=== PATIENT | male | born 1985 | race Hispanic/Latino ===

== ENCOUNTER 2024-12-14 11:09 | Emergency (ER) | payer OTHER ==
[~2024-12-14] VITALS: Ht 175.3 cm; Wt 102.1 kg
[~2024-12-14 11:09] MED LIST: ATOR-2 PO; CYCL7.5T27 PO; FERR324T23 PO; LACT10SO85 PO; METF-446 PO; NAPR-1194 PO; OMEP40CA21 PO
[2024-12-14 11:43] VITALS: BP 160/90; PULSE 82; RESP 16; TEMP 98; O2SAT 98
[2024-12-14 11:44] LABS: BASOPHILS # (AUTO) 0.05 K/uL (0.00-0.20); BASOPHILS % (AUTO) 0.4 % (0.0-5.0); EOSINOPHILS # (AUTO) 0.06 K/uL (0.00-0.70); EOSINOPHILS % (AUTO) 0.5 % (0.0-8.0); HEMATOCRIT 47.6 % (42-54); IMMATURE GRANULOCYTE ABSOLUTE 0.06 K/uL (0-1); LYMPHOCYTES # (AUTO) 1.3 K/uL (1.0-4.8); LYMPHOCYTES % (AUTO) 10.3 % (21.0-51.0); MEAN CORPUSCULAR HEMOGLOBIN 29.9 pg (27.0-33.0); MEAN CORPUSCULAR HGB CONC 34.7 g/dL (32.0-36.0); MEAN CORPUSCULAR VOLUME 86.2 fL (79-99); MONOCYTES % (AUTO) 7.8 % (3.0-13.0); NEUTROPHILS # (AUTO) 10.1 K/uL (1.8-7.7); NEUTROPHILS % (AUTO) 80.5 % (40.0-77.0); PLATELET COUNT (AUTO) 198 K/uL (130-400); RED BLOOD CELL COUNT(AUTO) 5.52 MIL/uL (4.50-6.20); WHITE BLOOD COUNT (AUTO) 12.5 K/uL (4.8-10.8)
[2024-12-14 11:46] LABS: APPEARANCE,URINE CLEAR (CLEAR); BILIRUBIN,URINE NEGATIVE (NEGATIVE); COLOR,URINE YELLOW (YELLOW); GLUCOSE, URINE (UA) TRACE mg/dL (NEGATIVE); KETONES,URINE 5 mg/dL (NEGATIVE); LEUKOCYTE ESTERASE ,URINE NEGATIVE Leu/uL (NEGATIVE); NITRATE,URINE NEGATIVE (NEGATIVE); OCCULT BLOOD,URINE LARGE (NEGATIVE); PH,URINE 5.5 (5.0-8.0); PROTEIN,URINE 20 mg/dL (NEGATIVE); UROBILINOGEN,URINE 0.2 mg/dL (0.2-1.0)
[2024-12-14 11:52] LABS: CREATININE 1.2 mg/dL (0.5-1.3); POTASSIUM 3.6 mmol/L (3.5-5.1)
[2024-12-14 11:52] LABS: MUCUS,URINE RARE LPF (None Seen); RBC,URINE TNTC /HPF (0-1); WBC,URINE 0-1 /HPF (0-1); YEAST,URINE BUDDING RARE /HPF (None Seen)
[2024-12-14] MEDS: 0.9%NACL 1000ML 1,000 ML IV ONE (11:55)
[2024-12-14] MEDS: ondanSETRON 4MG INJ IVP ONE (11:55)
[2024-12-14] MEDS: ketOROlac 30MG VIAL (30MG/ML) IVP ONE (11:56)
[2024-12-14 11:58] LABS: ALBUMIN 4.3 g/dL (3.5-5.0); BILIRUBIN,DIRECT 0.1 mg/dL (0.0-0.3); BILIRUBIN,TOTAL 0.6 mg/dL (0.2-1.0); TOTAL PROTEIN, SERUM 7.8 g/dL (6.0-8.3)
--- NOTE | 2024-12-14 12:04 | HMCIMG ---
CT ABDOMEN/PELVIS W/O CONTRAST HISTORY: Flank pain COMPARISON: 03/22/2024 TECHNIQUE: Multiple sequential axial images of the abdomen and pelvis were obtained from the dome of the diaphragm through symphysis pubis. Patient was not given contrast through intravenous route. Oral contrast was not given. FINDINGS: No pleural effusion is seen bilaterally. There is no evidence of parenchymal disease or pulmonary nodule of the visualized lower lungs. Degenerative changes of the thoracolumbar spine are present. The heart is not enlarged. Liver is enlarged with fatty changes measuring 22 cm. No gallstone is seen. The liver, spleen, adrenal glands and pancreas are unremarkable. No hydronephrosis is seen on the right. There is left hydronephrosis and left hydroureter with 2 mm renal stone in the left UV junction. Minimal left perinephric fat stranding is seen. Fecal material is seen in the colon. There are normal size retroperitoneal and mesenteric lymph nodes. No ascites is seen. Appendix is not completely well seen. Pelvic sidewalls are symmetric bilaterally. Bladder is poorly distended. IMPRESSION: 1. There is left hydronephrosis and left hydroureter with 2 mm renal stone in the left UV junction. Minimal left perinephric fat stranding is seen. CT was performed with one or more following dose reduction techniques: automated exposure control, adjustment of the mA and kv according to patient's size, or use of a iterative reconstruction technique.
[2024-12-14] MEDS ORDERED: KETO10TA2 PO (12:36)
--- NOTE | 2024-12-14 12:36 | ERN ---
General Chief Complaint: Flank Pain Stated Complaint: ABDOMINAL PAIN Time Seen by MD: 11:16 Time Seen by Midlevel: 11:16 Source: patient History of Present Illness Initial Comments 39-year-old male who presents to the emergency department due to left flank pain onset this morning. Patient reports nausea, and he noticed some blood in the urine. Denies any dysuria, fever, diarrhea or further associated symptoms. PMHx hypercholesterolemia Allergies: Coded Allergies: No Known Drug Allergies (Unverified Allergy, Unknown, 06/05/23) Home Meds Active Scripts Ketorolac Tromethamine (Ketorolac Tromethamine) 10 Mg Tablet, 1 TAB PO Q6HPRN PRN for pain for 5 Days, #20 TAB 0 Refills Prov:ERIC WOODS 12/14/24 Lactulose (Lactulose) 10 Gram/15 Ml Solution, 10 GM PO BID PRN for CONSTIPATION for 5 Days, #100 ML Prov:WINNIE PARNELL MD 03/22/24 Cyclobenzaprine HCl (Cyclobenzaprine HCl) 7.5 Mg Tablet, 7.5 MG PO DAILYDINNER for 5 Days, #5 TAB Prov:WINNIE PARNELL MD 03/22/24 Naproxen (Naproxen) 500 Mg Tablet, 500 MG PO BID PRN for PAIN LEVEL 1 TO 5 for 7 Days, #14 TAB Prov:WINNIE PARNELL MD 03/22/24 Reported Medications Atorvastatin Calcium (Atorvastatin Calcium) 80 Mg Tablet, 40 MG PO HS, TAB 06/05/23 Ferrous Gluconate (Ferrous Gluconate) 324 Mg (37.5 Mg Iron) Tablet, 324 MG PO QODAY, TAB 06/05/23 Metformin HCl (Metformin HCl) 1,000 Mg Tablet, 1000 MG PO BID, TAB 06/05/23 Omeprazole (Omeprazole) 40 Mg Capsule.dr, 40 MG PO BID, CAP 06/05/23 Past Medical History Past Medical History: High Cholesterol Past Surgical History: Other Surgical History Other: PARTIAL COLECTOMY ROS Dictation Constitutional: Negative for fever,chills, and weight loss Eyes: Negative for injury, pain,redness, and discharge ENT: Negative for injury,pain or swelling Cardiovascular: Negative for chest pain, palpitations, and edema Respiratory: Negative for shortness of breath, cough, and wheezing, Abdomen/GI: Negative for abdominal pain, nausea, vomiting, diarrhea, and constipation Back: Positive for left flank pain Negative for injury and pain : Positive for hematuria Negative for painful urination or discharge MS/Extremity: Negative for injury and deformity Skin: Negative for rash, and discoloration Neuro: Negative for headache, weakness, numbness, tingling, and seizure Psych: Negative for suicide ideation, homicidal ideation, and hallucinations Physical Exam Physical Exam Dictation General: awake, alert, no acute distress Head/Face: Normocephalic, atraumatic Eyes: PERRL, EOMI, normal conjunctiva ENT: oral cavity clear, oral mucosa moist Neck: Supple, normal range of motion Cardiovascular: RRR, normal S1/S2 Respiratory: CTAB, no respiratory distress, no rales or wheezes Abdomen: Soft, non-tender, non-distended, no guarding or rebound. Back: Mild Left CVA tenderness Skin: Warm, dry, normal turgor, no rash MS/Extremity: Pulses equal, no cyanosis, neurovascular intact, FROM Neuro: COAx4, GCS 15, strength 5/5, CN 2-12 intact, normal cerebellar exam, normal gait Psych: Normal behavior, mood, and affect normal Results Laboratory and Microbiology Lab and Micro Result Laboratory Tests Test 12/14/24 11:20 12/14/24 11:35 Urine Color YELLOW (YELLOW) Urine Appearance CLEAR (CLEAR) Urine pH 5.5 (5.0-8.0) Urine Specific [place] 1.027 (1.001-1.031) Urine Protein 20 mg/dL (NEGATIVE) H Urine Glucose (UA) TRACE mg/dL (NEGATIVE) H Urine Ketones 5 mg/dL (NEGATIVE) H Urine Occult Blood LARGE (NEGATIVE) H Urine Nitrate NEGATIVE (NEGATIVE) Urine Bilirubin NEGATIVE mg/dL (NEGATIVE) Urine Urobilinogen 0.2 mg/dL (0.2-1.0) Urine Leukocyte Esterase NEGATIVE Tyler/uL Urine RBC TNTC /HPF (0-1) H Urine WBC 0-1 /HPF (0-1) Urine Bacteria None /HPF (None Seen) Urine Yeast RARE /HPF (None Seen) White Blood Count 12.5 K/uL (4.8-10.8) H Red Blood Count 5.52 MIL/uL (4.50-6.20) Hemoglobin 16.5 g/dL (14.0-18.0) Hematocrit 47.6 % (42-54) Mean Corpuscular Volume 86.2 fL (79-99) Mean Corpuscular Hemoglobin 29.9 pg (27.0-33.0) Mean Corpuscular Hemoglobin Concent 34.7 g/dL (32.0-36.0) Red Cell Distribution Width 13.0 % (11.0-15.5) Platelet Count 198 K/uL (130-400) Mean Platelet Volume 9.4 fL (7.5-10.5) Immature Granulocyte % (Auto) 0.5 % (0-1) Neutrophils (%) (Auto) 80.5 % (40.0-77.0) H Lymphocytes (%) (Auto) 10.3 % (21.0-51.0) L Monocytes (%) (Auto) 7.8 % (3.0-13.0) Eosinophils (%) (Auto) 0.5 % (0.0-8.0) Basophils (%) (Auto) 0.4 % (0.0-5.0) Neutrophils # (Auto) 10.1 K/uL (1.8-7.7) H Lymphocytes # (Auto) 1.3 K/uL (1.0-4.8) Monocytes # (Auto) 1.0 K/uL (0.1-1.0) Eosinophils # (Auto) 0.06 K/uL (0.00-0.70) Basophils # (Auto) 0.05 K/uL (0.00-0.20) Absolute Immature Granulocyte (auto 0.06 K/uL (0-1) Nucleated Red Blood Cells 0.0 % (0.0-0.19) Sodium Level 137 mmol/L (136-145) Potassium Level 3.6 mmol/L (3.5-5.1) Chloride Level 101 mmol/L (101-111) Carbon Dioxide Level 25 mmol/L (21-32) Blood Urea Nitrogen 8 mg/dL (7-18) Creatinine 1.2 mg/dL (0.5-1.3) Glomerular Filtration Rate Calc 78 mL/min (>90) Random Glucose 192 mg/dL (70-105) H Total Calcium 9.0 mg/dL (8.5-10.1) Total Bilirubin 0.6 mg/dL (0.2-1.0) Direct Bilirubin 0.1 mg/dL (0.0-0.3) Aspartate Amino Transf (AST/SGOT) 28 U/L (10-37) Alanine Aminotransferase (ALT/SGPT) 61 U/L (12-78) Alkaline Phosphatase 111 U/L (50-136) Total Protein 7.8 g/dL (6.0-8.3) Albumin 4.3 g/dL (3.5-5.0) Lipase 39 U/L (16-77) Labs Reviewed?: Yes EKG/XRAY/US/CT/MRI CT Scan Comment REASON: L flank pain ORDERING PHYSICIAN: ERIC WOODS PROCEDURE: ABD PEL WO - CT ABDOMEN/PELVIS W/O CONTRAST CT ABDOMEN/PELVIS W/O CONTRAST HISTORY: Flank pain COMPARISON: 03/22/2024 TECHNIQUE: Multiple sequential axial images of the abdomen and pelvis were obtained from the dome of the diaphragm through symphysis pubis. Patient was not given contrast through intravenous route. Oral contrast was not given. FINDINGS: No pleural effusion is seen bilaterally. There is no evidence of parenchymal disease or pulmonary nodule of the visualized lower lungs. Degenerative changes of the thoracolumbar spine are present. The heart is not enlarged. Liver is enlarged with fatty changes measuring 22 cm. No gallstone is seen. The liver, spleen, adrenal glands and pancreas are unremarkable. No hydronephrosis is seen on the right. There is left hydronephrosis and left hydroureter with 2 mm renal stone in the left UV junction. Minimal left perinephric fat stranding is seen. Fecal material is seen in the colon. There are normal size retroperitoneal and mesenteric lymph nodes. No ascites is seen. Appendix is not completely well seen. Pelvic sidewalls are symmetric bilaterally. Bladder is poorly distended. IMPRESSION: 1. There is left hydronephrosis and left hydroureter with 2 mm renal stone in the left UV junction. Minimal left perinephric fat stranding is seen. CT was performed with one or more following dose reduction techniques: automated exposure control, adjustment of the mA and kv according to patient's size, or use of a iterative reconstruction technique. MDM MDM: Differential diagnosis: Nephrolithiasis, UTI, pyelonephritis Rationale: 39-year-old male who presents to the emergency department due to left flank pain onset this morning. Patient reports nausea, and he noticed some blood in the urine. Denies any dysuria, fever, diarrhea or further associated symptoms. PMHx hypercholesterolemia Per physical examination patient has mild left CVA tenderness. Vitals within normal limits during ED visit. Labs obtained showing mild WBC elevation of 12.5 otherwise nonspecific. UA negative for urinary tract infection, occult blood and RBCs noted. CT abdomen and pelvis obtained shows mild left hydronephrosis and left hydroureter with 2 mm renal stone in the left UV junction. Patient was administered Zofran, ketorolac, IV fluids in the ED on re-examination patient verbalized pain had resolved. Patient was educated on findings and diagnosis. Advised to follow up with PCP. Return to the emergency department if any worsening symptoms. Patient verbalized understanding. Patient stable for discharge. There are no social concerns with this patient. I independently interpreted the test that were performed, results were reviewed by me and considered findings on radiology if ordered. Medical management and examination interpretation discussions were had by me with other qualified healthcare professionals as indicated for the patient's care. ED Course Orders Procedure Category Date Status Time Cbc With Differential LAB 12/14/24 Complete 11:15 Basic Metabolic Panel LAB 12/14/24 Complete 11:15 Urinalysis LAB 12/14/24 Complete W/Microscopic 11:15 0.9%Nacl 1000ml (Ns PHA 12/14/24 Complete 1000ml) 11:30 Ketorolac PHA 12/14/24 Complete Tromethamine 30mg/Ml 11:30 Lipase LAB 12/14/24 Complete 11:16 Hepatic Function Panel LAB 12/14/24 Complete 11:16 Ct Abdomen/Pelvis W/O CT 12/14/24 Resulted Contrast 11:16 Ondansetron 4mg Inj PHA 12/14/24 Complete (Zofran 4mg Inj) 12:00 Neomy PHA 12/14/24 In Process Sulf/Bacitra/Polymyxin 13:00 Current Medications Medications (Trade) Dose Ordered Sig/Norberto Route PRN Reason Start Time Stop Time Status Last Admin Dose Admin Ketorolac Tromethamine (toRADol) 30 mg ONCE ONCE IVP 12/14/24 11:30 12/14/24 11:31 DC 12/14/24 11:56 Neomycin/ Polymyxin/ Bacitracin (Triple Antibiotic Ointment) 1 appl ONCE ONCE TP 12/14/24 13:00 12/14/24 13:01 Ondansetron HCl (zoFRAN 4MG INJ) 4 mg ONCE ONCE IVP 12/14/24 12:00 12/14/24 12:01 DC 12/14/24 11:55 Sodium Chloride 1,000 ml @ 0 mls/hr ONCE ONCE IV 12/14/24 11:30 12/14/24 11:31 DC 12/14/24 11:55 Vital Signs Date Time Temp Pulse Resp B/P (MAP) Pulse Ox O2 Delivery O2 Flow Rate FiO2 12/14/24 11:43 98.1 82 16 160/90 98 Room Air* 0 21 12/14/24 11:10 98.1 85 20 161/91 99 Room Air 0 DX & DISP Disposition: Discharge Departure Impression: Primary Impression: Left nephrolithiasis Condition: Stable Scripts Ketorolac Tromethamine (Ketorolac Tromethamine) 10 Mg Tablet 1 TAB PO Q6HPRN PRN for pain for 5 Days, #20 TAB 0 Refills Prov: ERIC WOODS 12/14/24 Additional Instructions: Discharge home. Rest. Follow up with primary care in 24 hours. Return to the ER for any acute changes or worsening symptoms. If any medications were prescribed take as directed. Okay to continue home medications unless otherwise discussed during your visit in the emergency room today. Patient was also advised to follow-up with primary care physician in 1 to 2 days for continued monitoring. Referrals: SELF,REFERRAL (PCP) I performed the substantive portion of the visit. I have reviewed and personally made and approve the management plan that is documented in the notes by myself or the CHELSEA. I acknowledge full responsibility for the patient's management plan. ERIC WOODS Dec 14, 2024 12:36
[2024-12-14] MEDS ORDERED: NEOMY SULF/BACITRA/POLYMYXIN B 1 EACH PACKET TP ONE (13:00)
== END 2024-12-14 12:50 | disposition home or self-care (01) ==
LOC: EDH 11:09
DX: N13.2 Hydronephrosis with renal and ureteral calculous obstruction (principal); E78.00 Pure hypercholesterolemia, unspecified; Z79.84 Long term (current) use of oral hypoglycemic drugs; Z79.899 Other long term (current) drug therapy
CPT/HCPCS: 99285; 74176; 96374; 96375; 80076; 80048; 83690; 85025; 81001; 36415; J1885; J7030; J2405

== ENCOUNTER 2025-08-16 17:44 | Emergency (ER) | payer OTHER ==
[~2025-08-16] VITALS: Ht 175.3 cm; Wt 102.1 kg
[~2025-08-16 17:44] MED LIST changes: +KETO10TA2 PO
--- NOTE | 2025-08-16 18:10 | ERN ---
ED Note History of Present Illness Stated Complaint: UPPER BACK ABSCESS Chief Complaint: Abscess Time Seen by MD: 17:54 Time Seen by Midlevel: 17:54 Dictation: The patient is a 39-year-old male with history of prediabetes who presents to the emergency department with a abscess to back that he noticed two weeks ago. Patient denies any fevers but reports some chills. Was sent over from the urgent care for further evaluation. Allergies: Coded Allergies: No Known Drug Allergies (Unverified Allergy, Unknown, 06/05/23) Home Meds Active Scripts Clindamycin HCl (Clindamycin HCl) 300 Mg Capsule, 1 CAP PO QID for 10 Days, #40 CAP 0 Refills Prov:BRIDGER STOUT MEMORANDUM STATEMENT CLERK 08/16/25 Ketorolac Tromethamine (Ketorolac Tromethamine) 10 Mg Tablet, 1 TAB PO Q6HPRN PRN for pain for 5 Days, #20 TAB 0 Refills Prov:ERIC WOODS PAC 12/14/24 Lactulose (Lactulose) 10 Gram/15 Ml Solution, 10 GM PO BID PRN for CONSTIPATION for 5 Days, #100 ML Prov:WINNIE PARNELL MD 03/22/24 Cyclobenzaprine HCl (Cyclobenzaprine HCl) 7.5 Mg Tablet, 7.5 MG PO DAILYDINNER for 5 Days, #5 TAB Prov:WINNIE PARNELL MD 03/22/24 Naproxen (Naproxen) 500 Mg Tablet, 500 MG PO BID PRN for PAIN LEVEL 1 TO 5 for 7 Days, #14 TAB Prov:WINNIE PARNELL MD 03/22/24 Reported Medications Atorvastatin Calcium (Atorvastatin Calcium) 80 Mg Tablet, 40 MG PO HS, TAB 06/05/23 Ferrous Gluconate (Ferrous Gluconate) 324 Mg (37.5 Mg Iron) Tablet, 324 MG PO QODAY, TAB 06/05/23 Metformin HCl (Metformin HCl) 1,000 Mg Tablet, 1000 MG PO BID, TAB 06/05/23 Omeprazole (Omeprazole) 40 Mg Capsule.dr, 40 MG PO BID, CAP 06/05/23 Past Medical History Past Medical History: Diabetes-Type II, High Cholesterol Surgical History: Other Surgical History Other: PARTIAL COLECTOMY RN Note Reviewed/Agreed w/PFSH: Yes Review of System Dictation Constitutional: Negative for fever,chills, and weight loss Eyes: Negative for injury, pain,redness, and discharge ENT: Negative for injury,pain or swelling Cardiovascular: Negative for chest pain, palpitations, and edema Respiratory: Negative for shortness of breath, cough, and wheezing, Abdomen/GI: Negative for abdominal pain, nausea, vomiting, diarrhea, and constipation Back: Negative for injury and pain, positive for abscess to back : Negative for injury, bleeding and discharge MS/Extremity: Negative for injury and deformity Skin: Negative for rash, and discoloration Neuro: Negative for headache, weakness, numbness, tingling, and seizure Psych: Negative for suicide ideation, homicidal ideation, and hallucinations Initial Vital Sign VS Vital Signs Date Time Temp Pulse Resp B/P (MAP) Pulse Ox O2 Delivery O2 Flow Rate FiO2 08/16/25 17:46 98.4 95 20 135/78 99 Room Air 08/16/25 20:25 0 21 Physical Exam Dictation Vital Signs reviewed General Appearance: Alert, oriented x 3, no acute distress, well developed, nourished. Head and Face: non-traumatic. Eyes: PERRL, pink conjunctivas, eyelid no trauma, anterior chamber with arcus senilis. Ears: Pinnas intact and no signs of trauma or erythema ear canals clear and no discharge TM no erythema Nose: No discharge, no bleeding. Oropharynx: Mouth normal, tongue pink. pharynx clear,no erythema, tonsils no exudates, no abscesses noted, mucous membrane moist Neck: Supple, non-tender, no thyromegaly, no masses, no JVD, no bruits Breast:Deferred Chest:No tenderness, no crepitus, no paradoxical movement, no retractions Lungs:Clear, well-ventilated, symmetric, no rales, no wheezing, no rhonchi, no stridor, good breath sounds bilaterally Heart: Regular rate, regular rhythm, no murmur, no gallops Vascular: no peripheral edema, Abdomen: Soft, positive bowel sounds, nondistended, no guarding, nontender, no rebound, no masses no hepatomegaly, no splenomegaly, no Lopez's sign, no hernias. Rectal: Deferred Genital: Deferred Neurological: Normal speech, motor function intact, sensory function intact Musculoskeletal: Neck nontender, full range of motion, back nontender, full range of motion, Extremities: nontender, full range of motion Skin: Color pink, dry, no turgor, no rash, no lacerations, no abrasions, no contusions., large abscess noted to mid upper back, no drainage, slight erythema Lymphatic: Deferred Results (Laboratory/Radiology) Laboratory/Radiology Laboratory Tests Test 08/16/25 18:31 White Blood Count 11.0 K/uL (4.8-10.8) H Red Blood Count 5.53 MIL/uL (4.50-6.20) Hemoglobin 16.5 g/dL (14.0-18.0) Hematocrit 49.0 % (42-54) Mean Corpuscular Volume 88.6 fL (79-99) Mean Corpuscular Hemoglobin 29.8 pg (27.0-33.0) Mean Corpuscular Hemoglobin Concent 33.7 g/dL (32.0-36.0) Red Cell Distribution Width 12.4 % (11.0-15.5) Platelet Count 284 K/uL (130-400) Mean Platelet Volume 9.2 fL (7.5-10.5) Immature Granulocyte % (Auto) 0.5 % (0-1) Neutrophils (%) (Auto) 72.9 % (40.0-77.0) Lymphocytes (%) (Auto) 14.2 % (21.0-51.0) L Monocytes (%) (Auto) 9.4 % (3.0-13.0) Eosinophils (%) (Auto) 2.4 % (0.0-8.0) Basophils (%) (Auto) 0.6 % (0.0-5.0) Neutrophils # (Auto) 8.0 K/uL (1.8-7.7) H Lymphocytes # (Auto) 1.6 K/uL (1.0-4.8) Monocytes # (Auto) 1.0 K/uL (0.1-1.0) Eosinophils # (Auto) 0.26 K/uL (0.00-0.70) Basophils # (Auto) 0.07 K/uL (0.00-0.20) Absolute Immature Granulocyte (auto 0.06 K/uL (0-1) Nucleated Red Blood Cells 0.0 % (0.0-0.19) Sodium Level 140 mmol/L (136-145) Potassium Level 3.8 mmol/L (3.5-5.1) Chloride Level 106 mmol/L (101-111) Carbon Dioxide Level 27 mmol/L (21-32) Blood Urea Nitrogen 7 mg/dL (7-18) Creatinine 0.8 mg/dL (0.5-1.3) Glomerular Filtration Rate Calc 115 mL/min (>90) Random Glucose 127 mg/dL (70-105) H Total Calcium 8.9 mg/dL (8.5-10.1) Labs Reviewed?: Yes ED Course ED Course Orders Procedure Category Date Status Time Cbc With Differential LAB 08/16/25 Complete 18:04 Basic Metabolic Panel LAB 08/16/25 Complete 18:04 Lidocaine Hcl 1% 20ml PHA 08/16/25 Complete Vial (Lidocaine Hc 19:00 Clindamycin 150mg Cap PHA 08/16/25 Complete (Cleocin 150mg Cap 19:00 I&D Set Up Bedside CPOE 08/16/25 Transmitted (Er) 18:54 Current Medications Medications (Trade) Dose Ordered Sig/Norberto Route PRN Reason Start Time Stop Time Status Last Admin Dose Admin Clindamycin HCl (Cleocin 150mg Cap) 300 mg ONCE ONCE PO 08/16/25 19:00 08/16/25 19:01 DC 08/16/25 19:30 Lidocaine HCl (Lidocaine HCl 1% 20ml Vial) 10 ml ONCE ONCE INJ 08/16/25 19:00 08/16/25 19:01 DC 08/16/25 20:13 Vital Signs Date Time Temp Pulse Resp B/P (MAP) Pulse Ox O2 Delivery O2 Flow Rate FiO2 08/16/25 20:25 99.3 100 18 137/84 95 Room Air* 0 21 08/16/25 17:46 98.4 95 20 135/78 99 Room Air Medical Decision Making MDM The patient is a 39-year-old male with history of prediabetes who presents to the emergency department with a abscess to back that he noticed two weeks ago. Patient denies any fevers but reports some chills. Was sent over from the urgent care for further evaluation. CBC showed mild leukocytosis, no anemia, chemistry showed no electrolyte imbalance,. Patient is abscess was drained. Patient tolerated procedure well. Patient will be started on antibiotics and [facility] Patient otherwise in no acute distress, nontoxic appearance, stable vital signs. We will also referral to surgery for further management. Differential diagnosis: Sepsis, abscess, cellulitis Need for hospitalization: Patient does not meet criteria for hospitalization. There are no social concerns with this patient. Procedure Procedure Dictation: Verbal consent for the procedure was obtained. A timeout protocol was performed prior to initiating the procedure. The area was prepared and draped in the usual, sterile manner. The site was anesthetized with 1% lidocaine without epinephrine. A 1.5 cm linear incision along the local skin lines was made and the purulent material expressed. The abscess was explored thoroughly and sequestered pockets were opened. Bleeding was minimal. Packing: idoform 08/21 in The patient tolerated the procedure well without complications. Standard post- procedure care is explained and return precautions are given. Site: Upper back Blade Size: 11 I & D Procedure: no betadine prep DX & DISP Disposition: Discharge Departure Impression: Primary Impression: Abscess of back Condition: Stable Scripts Clindamycin HCl (Clindamycin HCl) 300 Mg Capsule 1 CAP PO QID for 10 Days, #40 CAP 0 Refills Prov: BRIDGER STOUT [facility] 08/16/25 Additional Instructions: [facility] Take your antibiotics as prescribed. You will need your dressing change daily or more often if it becomes soiled. Develop fevers or symptoms are not improving with the antibiotics please follow up with your doctor return to ER if symptoms worsen. FOLLOW-UP WITH PRIMARY CARE PROVIDER IN 1 TO 2 DAYS. TAKE MEDICATIONS DIRECTED HERE IN THE EMERGENCY ROOM. OKAY TO CONTINUE HOME MEDICATIONS UNLESS OTHERWISE DISCUSSED DURING YOUR VISIT IN THE EMERGENCY ROOM TODAY. RETURN TO YOUR NEAREST EMERGENCY ROOM IF SYMPTOMS WORSEN OR IF THERE IS NO IMPROVEMENT. CALL 911 IF YOU NEED IMMEDIATE ASSISTANCE. TAKE TYLENOL [id number] NEEDED AND IF NO CONTRAINDICATIONS ARE PRESENT. INCREASE ORAL HYDRATION. A WOUND CULTURE OR URINE CULTURE WAS ORDERED HERE IN THE EMERGENCY ROOM DEPARTMENT PLEASE FOLLOW-UP WITH PRIMARY CARE PROVIDER AND ADVISE THEM TO GET REPEAT PORTS FROM OUR FACILITY. IF YOU HAD ANY VERA WRAP/SPLINTS THAT WERE APPLIED HERE, PLEASE DO NOT REMOVE THEM UNTIL YOU SEE YOUR PRIMARY CARE OR SPECIALTY. Referrals: SELF,REFERRAL (PCP) YOLANDE DOS SANTOS MD Time of Disposition: 20:00 I have reviewed the case, and I agree with, Diagnosis and Plan I performed a substantive portion of the visit. I have reviewed and personally made and approve the management plan that is documented in the notes by myself with CHELSEA/resident. I acknowledged full responsibility for the patient's management plan. BRIDGER STOUT Aug 16, 2025 18:10 HEDY PENA DO Aug 17, 2025 03:14
[2025-08-16 18:51] LABS: IMMATURE GRANULOCYTE ABSOLUTE 0.06 K/uL (0-1); NUCLEATED RED BLOOD CELLS 0.0 % (0.0-0.19); PLATELET COUNT (AUTO) 284 K/uL (130-400); RED BLOOD CELL COUNT(AUTO) 5.53 MIL/uL (4.50-6.20); RED CELL DISTRIBUTION WIDTH 12.4 % (11.0-15.5); WHITE BLOOD COUNT (AUTO) 11.0 K/uL (4.8-10.8)
[2025-08-16 18:57] LABS: CREATININE 0.8 mg/dL (0.5-1.3); GLOMERULAR FILTR. RATE CALC 115.0 mL/min (>90); GLUCOSE,RANDOM 127.0 mg/dL (70-105); SODIUM SERUM 140.0 mmol/L (136-145); UREA NITROGEN, BLOOD 7.0 mg/dL (7-18)
[2025-08-16] MEDS: CLINDAMYCIN 150 MG CAP PO ONE (19:30)
[2025-08-16] MEDS ORDERED: CLIN-141 PO (20:01)
[2025-08-16] MEDS: LIDOCAINE HCL 1% 20 ML VIAL INJ ONE (20:13)
[2025-08-16 20:25] VITALS: BP 137/84; PULSE 100; RESP 18; TEMP 99.4; O2SAT 95
== END 2025-08-16 20:27 | disposition home or self-care (01) ==
LOC: EDH 17:44
DX: L02.212 Cutaneous abscess of back [any part, except buttock and flank] (principal); E11.9 Type 2 diabetes mellitus without complications; E78.00 Pure hypercholesterolemia, unspecified; Z79.84 Long term (current) use of oral hypoglycemic drugs; Z79.899 Other long term (current) drug therapy
CPT/HCPCS: 99283; 10060; 80048; 85025; 36415; J2003